=== PATIENT | female | born 1975 | race Caucasian/White ===

== ENCOUNTER → 2016-07-15 | Outpatient (CLI) | payer OTHER ==
[~2016-07-15] MED LIST: AGM875T PO; LAMO150T2 PO; LVT.1T PO; METH4TAB PO; PRD10T PO; SULF1TAB35 PO; orthotricycline PO
--- NOTE | 2016-07-15 13:45 | Diagnostic Imaging Report ---
PROCEDURE: CT head without contrast. TECHNIQUE: Multiple contiguous axial images were obtained through the brain without the use of intravenous contrast. INDICATION: Diplopia. FINDINGS: There is no intracranial hemorrhage, edema or mass effect. The brain parenchyma and raymond-white matter differentiation is preserved. There is no hydrocephalus. No extra-axial fluid collection is seen. The visualized portions of the orbits appear grossly unremarkable. IMPRESSION: Unremarkable CT head. Dictated by: Dictated on workstation # [id number]
--- NOTE | 2016-07-15 14:37 | Diagnostic Imaging Report ---
PROCEDURE: CT orbit without. TECHNIQUE: Multiple contiguous axial images were obtained through the facial bones without the use of intravenous contrast. INDICATION: Diplopia. FINDINGS: There is symmetric normal thickness of the extraocular muscles with no retro-orbital mass. Symmetric thickness of the optic nerves is seen. There is no retrobulbar mass. The globes appear symmetric. The orbital davis appear intact. The adjacent portions of the paranasal sinuses visualized appear intact. IMPRESSION: Unremarkable exam. Dictated by: Dictated on workstation # [id number]
== END ==
LOC: RAD 13:14
PROVIDERS: ATTEND Optometrist
DX: H53.2 Diplopia (principal)
CPT/HCPCS: 70450; 70480